=== PATIENT | female | born 1950 | race Caucasian/White ===

== ENCOUNTER 2018-01-02 21:47 | Emergency (ER) | payer MEDICARE, BC ==
[~2018-01-02] VITALS: Ht 162.6 cm; Wt 68.6 kg
[2018-01-02] MEDS ORDERED: FLECAINIDE ACET50 MG PO (22:03)
[2018-01-02] MEDS ORDERED: COREG 6.256.25 MG/TA PO (22:03)
[2018-01-02] MEDS ORDERED: NORVASC 10MG10 MG PO (22:04)
[2018-01-02] MEDS ORDERED: MICROZIDE12.5 M1 PO (22:04)
[2018-01-02] MEDS ORDERED: SINGULAIR PO (22:05)
[2018-01-02] MEDS ORDERED: SYNTHROID0.05 MG PO (22:05)
[2018-01-02] MEDS ORDERED: CLARITIN LIQUI-10 MG PO (22:05)
[2018-01-02] MEDS ORDERED: ADULT ASPIRIN R81 MG PO (22:06)
[2018-01-02] MEDS ORDERED: PROAIR HFA0.09 MG/AC IH (22:08)
[2018-01-02 23:12] VITALS: BP 148/68
== END 2018-01-02 23:12 | disposition home or self-care (01) ==
LOC: ED 21:47
DX: J00 Acute nasopharyngitis [common cold] (principal); I48.91 Unspecified atrial fibrillation; I10 Essential (primary) hypertension; J45.909 Unspecified asthma, uncomplicated; Z88.0 Allergy status to penicillin; Z88.2 Allergy status to sulfonamides; Z88.8 Allergy status to other drugs, medicaments and biological substances; Z79.82 Long term (current) use of aspirin

== ENCOUNTER → 2018-01-04 | Outpatient (CLI) | payer MEDICARE, BC ==
[~2018-01-04] VITALS: Ht 162.6 cm; Wt 70.9 kg
[~2018-01-04] MED LIST: ADULT ASPIRIN R81 MG PO; CLARITIN LIQUI-10 MG PO; COREG 6.256.25 MG/TA PO; FLECAINIDE ACET50 MG PO; MICROZIDE12.5 M1 PO; NORVASC 10MG10 MG PO; PROAIR HFA0.09 MG/AC IH; SINGULAIR PO; SYNTHROID0.05 MG PO
[2018-01-04 14:00] VITALS: BP 144/75
== END ==
LOC: AMSURD 14:01
DX: I48.0 Paroxysmal atrial fibrillation (principal)

== ENCOUNTER → 2018-02-17 | Outpatient (CLI) | payer MEDICARE, BC ==
[2018-01-04 14:00] VITALS: BP 144/75
[2018-02-17 10:41] LABS: BUN/CREATININE RATIO 16.9 (6.0-26.0); CALCIUM 9.2 mg/dL (8.4-10.2); POTASSIUM 4.1 mmol/L (3.6-5.0)
== END ==
LOC: LAB 09:57
DX: I48.0 Paroxysmal atrial fibrillation (principal)

== ENCOUNTER → 2020-03-22 | Outpatient (CLI) | payer MEDICARE, BC ==
[2018-01-04 14:00] VITALS: BP 144/75
[2020-03-22 11:09] LABS: POTASSIUM 3.9 mmol/L (3.5-5.1)
[2020-03-22 11:10] LABS: CALCIUM 8.9 mg/dL (8.3-10.5)
== END ==
LOC: LAB 09:35
DX: I48.91 Unspecified atrial fibrillation (principal)

== ENCOUNTER 2022-10-24 10:21 | Emergency (ER) | payer MEDICARE, BC ==
[~2022-10-24] VITALS: Ht 152.4 cm; Wt 67.3 kg
[~2022-10-24 10:21] MED LIST changes: +BLOOD THINNER; +XANAX0.25 M1 PO
[2022-10-24] MEDS ORDERED: NORVASC 5MG5 MG/TAB PO (10:39)
[2022-10-24] MEDS ORDERED: FLECAINIDE ACET50 MG PO ×2 (10:40→13:15)
[2022-10-24 11:30] LABS: POTASSIUM 3.6 mmol/L (3.5-5.1); SODIUM 144 mmol/L (136-145)
[2022-10-24 11:32] LABS: GLUCOSE 93 mg/dL (65-105); TOTAL PROTEIN 6.7 g/dL (6.2-8.1)
[2022-10-24 11:33] LABS: CARBON DIOXIDE 24 mmol/L (23-31)
[2022-10-24 11:34] LABS: TOTAL BILIRUBIN 0.5 mg/dL (0.2-1.2)
[2022-10-24 11:37] LABS: AST-SGOT 18 U/L (5-34)
[2022-10-24 11:38] LABS: ALT/SGPT 11 U/L (0-55)
[2022-10-24 11:49] LABS: BASO # 0.05 K/mm3 (0.02-0.10); EOS # 0.19 K/mm3 (0.04-0.40); EOS % 3.1 % (1.0-5.0); HEMATOCRIT 38.5 % (37.0-47.0); HEMOGLOBIN 12.6 g/dL (12.5-16.0); LYMPH# 1.54 K/mm3 (1.50-4.00); MEAN CELL VOLUME 87 fl (78-100); MEAN CORPUSCULAR HEMOGLOBIN 28 pg (27-31); MEAN CORPUSCULAR HGB CONC 33 g/dL (33-37); MEAN PLATELET VOLUME 10.6 fl (7.4-10.4); MONO # 0.27 K/mm3 (0.20-0.80); NEU # 4.14 K/mm3 (1.40-6.50); PLATELET COUNT 331 K/mm3 (130-400); RED BLOOD COUNT 4.43 M/mm3 (4.10-5.30); TROPONIN-I < 0.030 ng/mL (<0.030); WHITE BLOOD COUNT 6.2 K/mm3 (4.8-10.8)
[2022-10-24 11:51] LABS: PROTHROMBIN TIME 10.9 SECONDS (9.0-12.0)
[2022-10-24 14:49] VITALS: BP 138/97
== END 2022-10-24 14:00 | disposition home or self-care (01) ==
LOC: ED 10:21
PROVIDERS: Nurse Practitioner Family
DX: I48.91 Unspecified atrial fibrillation (principal); Z86.79 Personal history of other diseases of the circulatory system; Z79.899 Other long term (current) drug therapy

== ENCOUNTER → 2022-12-25 | Outpatient (CLI) | payer MEDICARE, BC ==
[~2022-12-25] MED LIST changes: +NORVASC 5MG5 MG/TAB PO
== END ==
LOC: RAD 14:52 → MAMMO 15:15 → RAD 15:15
DX: M85.852 Other specified disorders of bone density and structure, left thigh (principal); M85.851 Other specified disorders of bone density and structure, right thigh

== ENCOUNTER → 2022-12-25 | Outpatient (CLI) | payer MEDICARE, BC | LOC: MAMMO 14:51 | DX: Z12.31 Encounter for screening mammogram for malignant neoplasm of breast (principal) ==

== ENCOUNTER → 2024-02-04 | Outpatient (CLI) | payer MEDICARE, BC ==
[~2024-02-04] MED LIST changes: +SAVAYSA60 MG PO
[2024-02-04 15:08] LABS: BASO # 0.03 K/mm3 (0.02-0.10); EOS # 0.15 K/mm3 (0.04-0.40); EOS % 2.6 % (1.0-5.0); HEMATOCRIT 39.1 % (37.0-47.0); HEMOGLOBIN 12.6 g/dL (12.5-16.0); MEAN CELL VOLUME 86 fl (78-100); MEAN CORPUSCULAR HEMOGLOBIN 28 pg (27-31); MEAN CORPUSCULAR HGB CONC 32 g/dL (33-37); MEAN PLATELET VOLUME 9.8 fl (7.4-10.4); MONO # 0.35 K/mm3 (0.20-0.80); NEU # 3.84 K/mm3 (1.40-6.50); PLATELET COUNT 284 K/mm3 (130-400); RED BLOOD COUNT 4.55 M/mm3 (4.10-5.30); RED CELL DISTRIBUTION WIDTH 12.9 % (11.5-14.5); WHITE BLOOD COUNT 5.9 K/mm3 (4.8-10.8)
[2024-02-04 15:11] LABS: ALBUMIN 4.4 g/dL (3.4-4.8)
[2024-02-04 15:12] LABS: CALCIUM 9.7 mg/dL (8.3-10.5)
[2024-02-04 15:14] LABS: TOTAL PROTEIN 7.4 g/dL (6.2-8.1)
[2024-02-04 15:16] LABS: TOTAL BILIRUBIN 0.5 mg/dL (0.2-1.2)
[2024-02-04 15:20] LABS: MAGNESIUM 2.07 mg/dL (1.60-2.60)
== END ==
LOC: LAB 14:39
PROVIDERS: Internal Medicine
DX: I10 Essential (primary) hypertension (principal); M85.80 Other specified disorders of bone density and structure, unspecified site; E78.2 Mixed hyperlipidemia; R20.2 Paresthesia of skin

== ENCOUNTER 2024-05-04 14:27 | Emergency (ER) | payer MEDICARE, BC ==
[~2024-05-04] VITALS: Ht 162.6 cm; Wt 68.2 kg
[2024-05-04 15:35] LABS: BASO # 0.03 K/mm3 (0.02-0.10); EOS # 0.15 K/mm3 (0.04-0.40); EOS % 2.7 % (1.0-5.0); HEMOGLOBIN 11.8 g/dL (12.5-16.0); LYMPH# 1.63 K/mm3 (1.50-4.00); MEAN CELL VOLUME 86 fl (78-100); MEAN CORPUSCULAR HEMOGLOBIN 28 pg (27-31); MEAN CORPUSCULAR HGB CONC 32 g/dL (33-37); MEAN PLATELET VOLUME 9.5 fl (7.4-10.4); MONO # 0.36 K/mm3 (0.20-0.80); NEU # 3.37 K/mm3 (1.40-6.50); PLATELET COUNT 256 K/mm3 (130-400); RED BLOOD COUNT 4.28 M/mm3 (4.10-5.30); RED CELL DISTRIBUTION WIDTH 13.2 % (11.5-14.5); WHITE BLOOD COUNT 5.5 K/mm3 (4.8-10.8)
[2024-05-04 15:41] LABS: ALBUMIN 4.2 g/dL (3.4-4.8)
[2024-05-04 15:42] LABS: CALCIUM 9.5 mg/dL (8.3-10.5)
[2024-05-04 15:44] LABS: TOTAL PROTEIN 7.1 g/dL (6.2-8.1)
[2024-05-04 15:45] LABS: TOTAL BILIRUBIN 0.2 mg/dL (0.2-1.2)
[2024-05-04 16:20] VITALS: BP 138/78
== END 2024-05-04 16:59 | disposition home or self-care (01) ==
LOC: ED 14:27
PROVIDERS: Physician Assistant
DX: K21.9 Gastro-esophageal reflux disease without esophagitis (principal); M53.3 Sacrococcygeal disorders, not elsewhere classified; R63.0 Anorexia; Z90.49 Acquired absence of other specified parts of digestive tract

== ENCOUNTER → 2025-02-05 | Outpatient (CLI) | payer MEDICARE, BC ==
[2025-02-05 11:30] LABS: BASO # 0.02 K/mm3 (0.02-0.10); EOS # 0.08 K/mm3 (0.04-0.40); EOS % 1.6 % (1.0-5.0); HEMATOCRIT 39.5 % (37.0-47.0); HEMOGLOBIN 12.8 g/dL (12.5-16.0); LYMPH# 1.36 K/mm3 (1.50-4.00); MEAN CELL VOLUME 86 fl (78-100); MEAN CORPUSCULAR HEMOGLOBIN 28 pg (27-31); MEAN CORPUSCULAR HGB CONC 32 g/dL (33-37); MEAN PLATELET VOLUME 9.4 fl (7.4-10.4); MONO # 0.23 K/mm3 (0.20-0.80); PLATELET COUNT 287 K/mm3 (130-400); RED BLOOD COUNT 4.61 M/mm3 (4.10-5.30); RED CELL DISTRIBUTION WIDTH 13.4 % (11.5-14.5)
[2025-02-05 11:35] LABS: ALBUMIN 4.5 g/dL (3.4-4.8)
[2025-02-05 11:36] LABS: CALCIUM 9.8 mg/dL (8.3-10.5)
[2025-02-05 11:37] LABS: TOTAL PROTEIN 8.1 g/dL (6.2-8.1)
[2025-02-05 11:39] LABS: TOTAL BILIRUBIN 0.5 mg/dL (0.2-1.2)
[2025-02-05 11:44] LABS: MAGNESIUM 2.02 mg/dL (1.60-2.60)
== END ==
LOC: LAB 11:16
PROVIDERS: Internal Medicine
DX: I10 Essential (primary) hypertension (principal); M85.80 Other specified disorders of bone density and structure, unspecified site; E78.2 Mixed hyperlipidemia; E03.9 Hypothyroidism, unspecified